=== PATIENT | female | born 1995 | race Caucasian/White ===

== ENCOUNTER 2020-11-26 09:55 | Emergency (ER) | payer SELFPAY ==
[2020-11-26] MEDS ORDERED: Ondansetron PF 4 MG/2 ML Vial ONE (10:34)
[2020-11-26] MEDS ORDERED: Sodium Chloride 0.9% 1,000 ML ONE (10:34)
[2020-11-27 13:25] LABS: SARS-CoV-2 PCR by NAA Not Detected (NotDetected)
== END 2020-11-26 12:12 | disposition home or self-care (01) ==
LOC: NAV ERS 09:55
DX: E86.0 Dehydration (principal); R11.2 Nausea with vomiting, unspecified; Z20.822 Contact with and (suspected) exposure to COVID-19
CPT/HCPCS: 96374; J2405; J7050; U0003; U0005

== ENCOUNTER 2020-11-27 04:03 | Emergency (ER) | payer SELFPAY ==
[2020-11-27] MEDS ORDERED: Ondansetron ODT 4 MG TAB ONE (04:53)
[2020-11-27] MEDS ORDERED: Sodium Chloride 0.9% 1,000 ML ONE (05:08)
[2020-11-27] MEDS ORDERED: Promethazine HCl 25 MG/ML VIAL ONE (05:08)
[2020-11-27 05:38] LABS: Anion Gap 17 mmol/L (10-20); BUN (Urea Nitrogen) 13 mg/dL (7.0-18.7); Calc. Creatinine Clearance 0 mL/min (70-130); Calcium 9.6 mg/dL (7.8-10.44); Carbon Dioxide 25 mmol/L (22-29); Chloride 98 mmol/L (98-107); Glucose 124 mg/dL (70-105); Potassium 3.6 mmol/L (3.5-5.1); Sodium 136 mmol/L (136-145)
== END 2020-11-27 06:45 | disposition home or self-care (01) ==
LOC: NAV ERS 04:03
DX: R11.2 Nausea with vomiting, unspecified (principal); F17.290 Nicotine dependence, other tobacco product, uncomplicated
CPT/HCPCS: 80048; 99284; J2550; J7050; Q0162